=== PATIENT | female | born 2000 | race Caucasian/White ===

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

== ENCOUNTER 2022-01-19 08:03 | Day surgery (SDC) | payer OTHER ==
[~2022-01-19] VITALS: Ht 165.1 cm; Wt 67.9 kg
[~2022-01-19 08:03] MED LIST: BACT800T5 PO
[2022-01-19] MEDS ORDERED: LR 1,000 ML IV SCH (08:25)
[2022-01-19] MEDS ORDERED: MIDAZOLAM INJ 2MG/2ML VIAL (J2250 PER 1MG) As Ordered ONE (10:03)
[2022-01-19] MEDS ORDERED: fentaNYL 100 MCG/2 ML INJECTION As Ordered ONE (10:03)
[2022-01-19] MEDS ORDERED: LIDOCAINE 2% 100MG/5ML SDV (FOR ANES.) As Ordered ONE (10:08)
[2022-01-19] MEDS ORDERED: propofoL 200 MG/20 ML VIAL As Ordered ONE (10:08)
[2022-01-19] MEDS ORDERED: EPINEPHrine INJ 1 MG/ML 1ML AMP As Ordered ONE (10:10)
[2022-01-19] MEDS ORDERED: KETOROLAC 60MG 2ML VIAL As Ordered ONE (11:06)
[2022-01-19] MEDS ORDERED: NS 1,000 ML IV SCH (11:15)
[2022-01-19] MEDS ORDERED: MEPERIDINE INJ 25 MG/ML VIAL (J2175) IV PRN (11:15)
[2022-01-19] MEDS ORDERED: oxyCODONE 5MG TAB PO PRN (11:15)
[2022-01-19] MEDS ORDERED: ONDANSETRON 4MG 2ML VIAL IV PRN (11:15)
[2022-01-19] MEDS ORDERED: fentaNYL 100 MCG/2 ML INJECTION IV PRN (11:15)
[2022-01-19 11:59] VITALS: BP 113/73
== END 2022-01-19 13:49 | disposition home or self-care (01) ==
LOC: M SDC 08:03
PROVIDERS: ATTEND Surgery
DX: L05.91 Pilonidal cyst without abscess (principal)
CPT/HCPCS: 11770; 81025; 88304; J0171; J1885; J2250; J3010

== ENCOUNTER → 2022-07-23 | Outpatient (REF) | payer BC ==
[2022-07-23 20:09] LABS: GC DNA AMPLIFICATION NEGATIVE (NEGATIVE)
== END ==
LOC: M LAB REF 16:52
PROVIDERS: ATTEND Nurse Practitioner Family
DX: Z11.8 Encounter for screening for other infectious and parasitic diseases (principal)

== ENCOUNTER → 2023-07-11 | Outpatient (REF) | payer BC, OTHER | LOC: M LAB REF 15:19 | PROVIDERS: ATTEND Registered Nurse | DX: Z11.3 Encounter for screening for infections with a predominantly sexual mode of transmission (principal) ==